=== PATIENT | female | born 1995 | race American Indian/Alaskan Native ===

== ENCOUNTER 2017-10-24 13:58 | Emergency (ER) | payer MEDICAID ==
--- NOTE | 2017-10-24 14:31 | ED PDOC ---
Arrival/HPI - General Chief Complaint: Female Genitourinary Time Seen by Provider: 10/24/17 14:24 Historian: Patient - History of Present Illness Narrative History of Present Illness (Text): 10/24/17 14:31 22 y/o female, here for the prophylatic treatment for gonorrhea and chlamydia as her boyfriend told her that he is infected with gonorrhea/chlamydia. Pt. has no fever or chills, no night sweat, no numbness or tingling, no vaginal bleeding or discharge, no pelvic pain, no flank pain, no urinary symptoms, no other medical or psychological complaints. Past Medical History - Provider Review Nursing Documentation Reviewed: Yes - Infectious Disease Hx of Infectious Diseases: None - Reproductive Menopause: No - Psychiatric Hx Substance Use: No - Anesthesia Hx Anesthesia: No Family/Social History - Physician Review Nursing Documentation Reviewed: Yes Family/Social History: Unknown Family HX Smoking Status: Unknown If Ever Smoked Hx Alcohol Use: No Hx Substance Use: No Allergies/Home Meds Allergies/Adverse Reactions: Allergies polen Allergy (Uncoded 10/24/17 14:16) CONGESTION Home Medications: Home Meds Medication Instructions Recorded Confirmed No Known Home Med 10/24/17 10/24/17 Review of Systems - Review of Systems Constitutional: absent: Fatigue, Fevers Eyes: absent: Vision Changes ENT: absent: Hearing Changes Respiratory: absent: SOB, Cough Cardiovascular: absent: Chest Pain Gastrointestinal: absent: Abdominal Pain, Nausea, Vomiting Musculoskeletal: absent: Arthralgias, Back Pain Skin: absent: Rash, Pruritis, Laceration Neurological: absent: Headache, Dizziness Psychiatric: absent: Anxiety, Depression, Suicidal Ideation Physical Exam Vital Signs Reviewed: Yes Vital Signs Temp Pulse Resp BP Pulse Ox 10/24/17 14:12 99.2 F 97 H 16 140/86 98 Temperature: Afebrile Blood Pressure: Normal Pulse: Regular Respiratory Rate: Normal Appearance: Positive for: Well-Appearing, Non-Toxic, Comfortable Pain Distress: None Mental Status: Positive for: Alert and Oriented X 3 - Systems Exam Head: Present: Atraumatic, Normocephalic Pupils: Present: PERRL Extroacular Muscles: Present: EOMI Conjunctiva: Present: Normal Mouth: Present: Moist Mucous Membranes Neck: Present: Normal Range of Motion Respiratory/Chest: Present: Clear to Auscultation, Good Air Exchange. No: Respiratory Distress, Accessory Muscle Use Cardiovascular: Present: Regular Rate and Rhythm, Normal S1, S2. No: Murmurs Abdomen: No: Tenderness, Distention, Peritoneal Signs, Rebound, Guarding Back: Present: Normal Inspection Upper Extremity: Present: Normal Inspection. No: Cyanosis, Edema Lower Extremity: Present: Normal Inspection. No: Edema Neurological: Present: GCS=15, CN II-XII Intact, Speech Normal, Motor Func Grossly Intact, Gait Normal, Memory Normal Skin: Present: Warm, Dry, Normal Color. No: Rashes Psychiatric: Present: Alert, Oriented x 3, Normal Insight, Normal Concentration Medical Decision Making ED Course and Treatment: 10/24/17 14:33 -urine hcg and UA -Observe and reassess 10/24/17 15:01 -Urine hcg is negative. -UA show no UTI -Rocephine and azithromycin ordered. -Discharge home with stay hydrated, use condom in the future and notify all your sexual partners for the STD testing and prophylatic treatment, return to the ER for any new or worsening signs or symptoms. - Lab Interpretations Lab Results: Lab Results 10/24/17 15:12: Urine Color Yellow, Urine Appearance Clear, Urine pH 6.5, Ur Specific Walsh 1.020, Urine Protein Negative, Urine Glucose (UA) Negative, Urine Ketones Trace H, Urine Blood Trace-intact H, Urine Nitrate Negative, Urine Bilirubin Negative, Urine Urobilinogen 0.2, Ur Leukocyte Esterase Negative , Urine RBC Pending, Urine WBC Pending I have reviewed the lab results: Yes - Medication Orders Current Medication Orders: Discontinued Medications Azithromycin (Zithromax) 1,000 mg PO STAT STA PRN Reason: Protocol Stop: 10/24/17 15:25 Ceftriaxone Sodium (Rocephin) 250 mg IM STAT STA PRN Reason: Protocol Stop: 10/24/17 15:25 - PA / K 12 PRINCIPAL / Resident Statement MD/DO has reviewed & agrees with the documentation as recorded. Disposition/Present on Arrival - Present on Arrival Any Indicators Present on Arrival: No History of DVT/PE: No History of Uncontrolled Diabetes: No Urinary Catheter: No History of Decub. Ulcer: No History Surgical Site Infection Following: None - Disposition Have Diagnosis and Disposition been Completed?: Yes Diagnosis: Potential exposure to STD Disposition: HOME/ ROUTINE Disposition Time: 14:33 Patient Plan: Discharge Condition: GOOD Additional Instructions: -Discharge home with stay hydrated, use condom in the future and notify all your sexual partners for the STD testing and prophylatic treatment, return to the ER for any new or worsening signs or symptoms. Referrals: Tolu Chavez MD [Primary Care Provider] - Follow up with primary Vignesh Hussein MD [Staff Provider] - Follow up with primary Forms: WORK NOTE
[2017-10-24 15:21] LABS: PH,URINE 6.5 (4.7-8.0); URINE BILIRUBIN NEGATIVE (NEGATIVE); URINE BLOOD TRACE-INTACT (NEGATIVE); URINE GLUCOSE (UA) NEGATIVE (NEGATIVE); URINE LEUKOCYTE ESTERASE NEGATIVE Leu/uL (NEGATIVE); URINE PROTEIN NEGATIVE mg/dL (<30 mg/dL); URINE UROBILINOGEN 0.2 E.U./dL (<1 E.U./dL)
[2017-10-24 15:24] LABS: URINE APPEARANCE CLEAR (CLEAR); URINE COLOR YELLOW (YELLOW)
[2017-10-24] MEDS ORDERED: cefTRIAXone (Rocephin) 250 mg Inj IM STA (15:24)
[2017-10-24 15:38] VITALS: BP 138/79; RESP 18; TEMP 98.7
[2017-10-24] MEDS ORDERED: Lidocaine 1% Inj (20ml) ONE (15:45)
[2017-10-24 15:48] LABS: URINE BACTERIA FEW (NEG); URINE EPITHELIAL CELLS 0 - 2 /hpf (0-5); URINE WBC 0 - 2 /hpf (0-6)
[2017-10-24 16:26] VITALS: PULSE 82; O2SAT 99
== END 2017-10-24 16:25 | disposition home or self-care (01) ==
LOC: MERGE 13:58 → ED 13:58
DX: Z04.8 Encounter for examination and observation for other specified reasons (principal)
CPT/HCPCS: 81001; 96372; 99283; J0696